=== PATIENT | female | born 1985 | race Caucasian/White ===

== ENCOUNTER → 2017-05-06 | Outpatient (REF) | payer BC ==
[~2017-05-06] MED LIST: ACET50TA PO; ASCO25TA PO; FERR325T3 PO; IBUP-1114 PO; PRENTAB9 PO; TUMS500C PO
[2017-05-06 18:53] LABS: ALBUMIN/GLOBULIN RATIO 1.18 (1.00-1.93); ALKALINE PHOSPHATASE 64 U/L (45-117); ALT/SGPT 27 U/L (12-78); ANION GAP 8 MEQ/L (8-16); AST/SGOT 13 U/L (15-37); BILIRUBIN,TOTAL 0.6 MG/DL (0.2-1.0); BLOOD UREA NITROGEN 11 MG/DL (7-18); CALCIUM LEVEL 8.9 MG/DL (8.5-10.1); CARBON DIOXIDE LEVEL 25 MEQ/L (21-32); CHLORIDE LEVEL 108 MEQ/L (98-107); CHOLESTEROL LEVEL 196 MG/DL (<200); CREATININE FOR GFR 0.73 MG/DL (0.55-1.02); GLOMERULAR FILTRATION RATE > 60.0 (>60); GLUCOSE, FASTING 80 MG/DL (70-105); POTASSIUM SERUM 4.2 MEQ/L (3.5-5.1); SODIUM LEVEL 141 MEQ/L (136-145); TOTAL PROTEIN 7.4 GM/DL (6.4-8.2); TRIGLYCERIDES LEVEL 58 MG/DL (<150)
== END ==
LOC: M SFHCCLAY 08:59
PROVIDERS: ATTEND Family Medicine
DX: Z00.00 Encounter for general adult medical examination without abnormal findings (principal)

== ENCOUNTER → 2018-01-27 | Outpatient (REF) | payer BC | LOC: M SFHCCLAY 01-28 11:26 | DX: J02.9 Acute pharyngitis, unspecified (principal) | CPT/HCPCS: 87070 ==

== ENCOUNTER → 2019-05-03 | Outpatient (REF) | payer BC ==
[~2019-05-03] MED LIST changes: -ACET50TA PO; -ASCO25TA PO; +MAPA500T2 PO; +VITA1TAB23 PO
== END ==
LOC: M SFHCCLAY 16:02
PROVIDERS: ATTEND Nurse Practitioner Family
DX: Z53.9 Procedure and treatment not carried out, unspecified reason (principal)

== ENCOUNTER → 2019-05-25 | Outpatient (CLI) | payer BC | LOC: M SMT 14:13 | PROVIDERS: ATTEND Advanced Practice Midwife | DX: O03.9 Complete or unspecified spontaneous abortion without complication (principal) ==

== ENCOUNTER → 2019-06-08 | Outpatient (REF) | payer BC | LOC: M LABDRAW1 16:02 | PROVIDERS: ATTEND Advanced Practice Midwife | DX: O03.4 Incomplete spontaneous abortion without complication (principal) ==

== ENCOUNTER → 2019-09-30 | Outpatient (REF) | payer BC ==
[2019-10-01 11:36] LABS: BASO % 0.4 % (0.0-1.0); EOS # 0.1 10^3/uL (0.0-0.5); EOS % 2.5 % (0.0-3.0); HEMATOCRIT 38.7 % (36.0-47.0); HEMOGLOBIN 12.3 g/dl (12.0-15.5); LYMPH # 1.5 10^3/uL (1.5-5.0); LYMPH % 29.1 % (24.0-44.0); MEAN CORPUSCULAR HEMOGLOBIN 28.7 pg (27.0-33.0); MEAN CORPUSCULAR HGB CONC 31.8 g/dl (32.0-36.5); MEAN CORPUSCULAR VOLUME 90.2 fl (80.0-96.0); MONO # 0.5 10^3/uL (0.0-0.8); MONO % 8.8 % (0.0-5.0); NEUTROPHILS # 3.1 10^3/uL (1.5-8.5); PLATELET COUNT, AUTOMATED 288 10^3/uL (150-450); RED BLOOD COUNT 4.29 10^6/uL (4.00-5.40); WHITE BLOOD COUNT 5.2 10^3/uL (4.0-10.0)
[2019-10-01 11:45] LABS: ALBUMIN 3.7 GM/DL (3.2-5.2); ALT/SGPT 33 U/L (12-78); BILIRUBIN,TOTAL 0.3 MG/DL (0.2-1.0); BLOOD UREA NITROGEN 16 MG/DL (7-18); CALCIUM LEVEL 8.8 MG/DL (8.5-10.1); CARBON DIOXIDE LEVEL 29 MEQ/L (21-32); CHLORIDE LEVEL 106 MEQ/L (98-107); CREATININE FOR GFR 0.53 MG/DL (0.55-1.30); GLOMERULAR FILTRATION RATE > 60.0 (>60); GLUCOSE, FASTING 88 MG/DL (70-100); POTASSIUM SERUM 3.6 MEQ/L (3.5-5.1); SODIUM LEVEL 140 MEQ/L (136-145); TOTAL PROTEIN 7.2 GM/DL (6.4-8.2)
== END ==
LOC: M SFHCCLAY 14:02
PROVIDERS: ATTEND Nurse Practitioner Family
DX: R59.0 Localized enlarged lymph nodes (principal)

== ENCOUNTER → 2021-03-14 | Outpatient (REF) | payer BC ==
[~2021-03-14] MED LIST changes: +ASCO250T20 PO; -VITA1TAB23 PO
== END ==
LOC: M SFHCCLAY 10:51
PROVIDERS: ATTEND Nurse Practitioner Family
DX: Z36.9 Encounter for antenatal screening, unspecified (principal); Z3A.01 Less than 8 weeks gestation of pregnancy

== ENCOUNTER → 2021-04-16 | Outpatient (CLI) | payer BC ==
[2021-04-16 13:21] LABS: HEMATOCRIT 35.3 % (36.0-47.0); MEAN CORPUSCULAR HEMOGLOBIN 26.1 pg (27.0-33.0); MEAN CORPUSCULAR HGB CONC 31.2 g/dl (32.0-36.5); MEAN CORPUSCULAR VOLUME 83.8 fl (80.0-96.0); PLATELET COUNT, AUTOMATED 352 10^3/uL (150-450); RED BLOOD COUNT 4.21 10^6/uL (4.00-5.40); WHITE BLOOD COUNT 7.7 10^3/uL (4.0-10.0)
[2021-04-16 14:33] LABS: HIV 1&2 SCREEN CENTAUR NEGATIVE (NEGATIVE)
[2021-04-16 14:56] LABS: GC DNA AMPLIFICATION NEGATIVE (NEGATIVE)
== END ==
LOC: M PLALAB 10:23
PROVIDERS: ATTEND Specialist
DX: Z34.81 Encounter for supervision of other normal pregnancy, first trimester (principal); Z3A.00 Weeks of gestation of pregnancy not specified

== ENCOUNTER → 2021-05-14 | Outpatient (REF) | payer BC | LOC: M SFHCWAGY 13:13 | PROVIDERS: ATTEND Advanced Practice Midwife | DX: Z34.92 Encounter for supervision of normal pregnancy, unspecified, second trimester (principal); Z3A.00 Weeks of gestation of pregnancy not specified ==

== ENCOUNTER → 2021-06-21 | Outpatient (CLI) | payer BC ==
--- NOTE | 2021-06-22 02:49 | REP ---
INDICATION: ANATOMY COMPARISON: None. TECHNIQUE: Transabdominal obstetrical ultrasound with color Doppler evaluation. FINDINGS: Examination demonstrates a single live intrauterine in variable presentation. motion is identified by technologist. Placenta is noted posterior and grade 0 without evidence for placenta previa or abruption. Amniotic fluid volume is normal. Cervix measures 3.5 cm in length and appears closed.. Selected gestational age: 20 weeks 1 day with ALEKSANDR 11/07/2021. Gestational age by current measurements 19 weeks 6 days with ALEKSANDR 11/09/2021. FHR equals 142 beats per minute. BPD: 4.7 cm; 20 weeks 1 day; 50% HC: 17.0 cm; 19 weeks 4 days; 34% AC: 14.7 cm; 20 weeks 0 days; 47% FL: 3.1 cm; 19 weeks 3 days; 33% HL: 3.0 cm; 19 weeks 6 days; 45% HC/AC: 1.15 Estimated weight 311 grams (26thpercentile). Anatomical assessment demonstrates normal structures including cranium, choroid plexus, cavum, cerebellum/posterior fossa, facial features, lungs, four-chamber heart/ventricular outflow tracts, diaphragm, stomach, cord insertion/three-vessel cord, kidneys/bladder, spine, and extremities. IMPRESSION: Single live intrauterine in variable presentation demonstrating appropriate estimated weight. Anatomical assessment is complete and normal. <Electronically signed by David Hamilton > 06/22/21 [id number]
== END ==
LOC: M WHC 14:03
PROVIDERS: ATTEND Advanced Practice Midwife
DX: Z34.92 Encounter for supervision of normal pregnancy, unspecified, second trimester (principal); Z3A.20 20 weeks gestation of pregnancy

== ENCOUNTER → 2021-08-27 | Outpatient (CLI) | payer BC ==
[2021-08-27 15:11] LABS: HEMATOCRIT 33.2 % (36.0-47.0); HEMOGLOBIN 10.7 g/dl (12.0-15.5); MEAN CORPUSCULAR HEMOGLOBIN 28.8 pg (27.0-33.0); MEAN CORPUSCULAR HGB CONC 32.2 g/dl (32.0-36.5); MEAN CORPUSCULAR VOLUME 89.2 fl (80.0-96.0); PLATELET COUNT, AUTOMATED 266 10^3/uL (150-450); RED BLOOD COUNT 3.72 10^6/uL (4.00-5.40); WHITE BLOOD COUNT 9.1 10^3/uL (4.0-10.0)
== END ==
LOC: M PLALAB 12:48
PROVIDERS: ATTEND Obstetrics & Gynecology
DX: O99.013 Anemia complicating pregnancy, third trimester (principal); Z3A.00 Weeks of gestation of pregnancy not specified

== ENCOUNTER → 2021-10-16 | Outpatient (REF) | payer BC | LOC: M SFHCWAGY 16:53 | PROVIDERS: ATTEND Obstetrics & Gynecology | DX: Z34.93 Encounter for supervision of normal pregnancy, unspecified, third trimester (principal) ==

== ENCOUNTER 2021-11-14 19:18 | Inpatient (IN) | payer BC ==
[~2021-11-14] VITALS: Ht 152.4 cm; Wt 73.8 kg
[2021-11-14] VITALS (9 sets, daily range): BP systolic 131–174; BP diastolic 66–98
[2021-11-14] MEDS ORDERED: TUMS500C PO (19:55)
[2021-11-14] MEDS ORDERED: CARBOPROST TROMETHAMINE 250 MCG/ML AMP IM PRN (20:25)
[2021-11-14] MEDS ORDERED: LR 1,000 ML IV SCH (20:25)
[2021-11-14] MEDS ORDERED: OXYTOCIN INJ 10 UNITS/ML VIAL (J2590) IM PRN (20:25)
[2021-11-14] MEDS ORDERED: OXYTOCIN DRIP 30 UNITS in IV 1 EA IV SCH (20:25)
[2021-11-14] MEDS ORDERED: OXYTOCIN DRIP 30 UNITS in IV 1 EA IV PRN ×4 (20:25)
[2021-11-14] MEDS ORDERED: LIDOCAINE 1% MDV 20ML VIAL INFIL PRN (20:25)
[2021-11-14] MEDS ORDERED: METHYLERGONOVINE MALEATE 0.2 MG/ML VIAL (J2210) IM PRN (20:25)
[2021-11-14] MEDS ORDERED: TRANEXAMIC ACID INJection 1,000 MG in NS 100 ML IV PRN (20:25)
[2021-11-14] MEDS ORDERED: LACTATED RINGER'S 1000 ML IV ONE (20:40)
[2021-11-14 20:43] LABS: BASO % 0.3 % (0.0-1.0); EOS # 0.1 10^3/uL (0.0-0.5); EOS % 0.8 % (0.0-3.0); HEMATOCRIT 37.4 % (36.0-47.0); HEMOGLOBIN 12.8 g/dl (12.0-15.5); LYMPH # 1.1 10^3/uL (1.5-5.0); LYMPH % 15.2 % (24.0-44.0); MEAN CORPUSCULAR HEMOGLOBIN 30.1 pg (27.0-33.0); MEAN CORPUSCULAR HGB CONC 34.2 g/dl (32.0-36.5); MONO # 0.6 10^3/uL (0.0-0.8); MONO % 8.4 % (2.0-8.0); NEUTROPHILS # 5.4 10^3/uL (1.5-8.5); NEUTROPHILS % 74.2 % (36.0-66.0); PLATELET COUNT, AUTOMATED 190 10^3/uL (150-450); RED BLOOD COUNT 4.25 10^6/uL (4.00-5.40); WHITE BLOOD COUNT 7.3 10^3/uL (4.0-10.0)
[2021-11-14] MEDS ORDERED: BUTORPHANOL 2 MG/ML INJ (J0595) IV ONE (22:20)
[2021-11-14] MEDS ORDERED: PROMETHAZINE 25MG/ML 1ML VIAL IV ONE (22:20)
[2021-11-15] VITALS (24 sets, daily range): BP systolic 120–186; BP diastolic 60–133
[2021-11-15] MEDS ORDERED: FENTANYL 2MCG/ML ROPIVACAINE 0.2% IN 0.9% NACL 100ML IVBAG As Ordered ONE (02:33)
[2021-11-15] MEDS ORDERED: diphenhydrAMINE 50MG/ML VIAL (J1200) IV PRN (02:40)
[2021-11-15] MEDS ORDERED: ONDANSETRON 4MG/2ML VIAL IV PRN (02:40)
[2021-11-15] MEDS ORDERED: EPIDURAL/PCA KEYS XX PRN (02:40)
[2021-11-15] MEDS ORDERED: LACTATED RINGER'S 1000 ML IV PRN (02:40)
[2021-11-15] MEDS ORDERED: EPIDURAL COMMENT XX SCH (02:40)
[2021-11-15] MEDS ORDERED: FENTANYL/ROPIVACAINE/NACL BAG 100 ML EPIDURAL SCH (02:40)
[2021-11-15] MEDS ORDERED: NALOXONE INJ 0.4MG/1ML VIAL (J2310 PER 1MG) IV PRN (02:40)
[2021-11-15] MEDS ORDERED: REFRIGERATOR IV KEYS XX PRN (02:40)
[2021-11-15] MEDS ORDERED: ePHEDrine SULFATE 25 MG/5 ML(5MG/ML) SYRINGE IV PRN (02:40)
[2021-11-15 04:52] LABS: CORD GAS ABE V -12.5; CORD GAS HCO3 V 16.5 MEQ/L; CORD GAS O2 SAT V 39.6 %; CORD GAS PCO2 V 49.1 mmHg; CORD GAS PH V 7.145 UNITS; CORD GAS PO2 V 20.2 mmHg; CORD GAS SBC V 13.8 MEQ/L
[2021-11-15 04:55] LABS: CORD GAS HCO3 A 20.4 MEQ/L; CORD GAS O2 SAT A 15.1 %; CORD GAS PCO2 A 70.1 mmHg; CORD GAS PH A 7.082 UNITS; CORD GAS PO2 A 12.2 mmHg; CORD GAS SBC A 14.3 MEQ/L; CORD GAS TCO2 A 22.6 MEQ/L
[2021-11-15] MEDS ORDERED: DIBUCAINE 1% OINTMENT 30GM TOP PRN (05:15)
[2021-11-15] MEDS ORDERED: ANUSOL HC CREAM 30GM TOP PRN (05:15)
[2021-11-15] MEDS ORDERED: MEASLES,MUMPS,RUBELLA VACCINE INJ (MMR-II) (90707) SC SCH (05:15)
[2021-11-15] MEDS ORDERED: RHOGAM 300 MCG (1500 IU) INJ (J2790) IM SCH (05:15)
[2021-11-15] MEDS ORDERED: ACETAMINOPHEN TAB 650MG DOSE (2X325MG) PO PRN (05:15)
[2021-11-15] MEDS ORDERED: IBUPROFEN 600MG TAB PO PRN (05:15)
[2021-11-15] MEDS: PRENATAL VITAMINS CHEWABLE TABLET PO SCH (10:43)
[2021-11-15] MEDS: ACETAMINOPHEN 500 MG TAB PO PRN ×2 (10:44→17:09)
[2021-11-15] MEDS: IBUPROFEN 800 MG TAB PO PRN ×2 (12:42→22:16)
[2021-11-15] MEDS: DOCUSATE SODIUM 100MG CAPSULE PO PRN (22:15)
[2021-11-16] MEDS: IBUPROFEN 800 MG TAB PO PRN ×3 (05:29→22:10)
[2021-11-16] MEDS: PRENATAL VITAMINS CHEWABLE TABLET PO SCH (07:49)
[2021-11-16] MEDS: ACETAMINOPHEN 500 MG TAB PO PRN ×2 (07:50→16:19)
[2021-11-16] MEDS: DOCUSATE SODIUM 100MG CAPSULE PO PRN (16:19)
[2021-11-16 18:00] VITALS: BP 162/88
[2021-11-17] MEDS: ACETAMINOPHEN 500 MG TAB PO PRN ×2 (00:57→08:27)
[2021-11-17 05:56] VITALS: BP 138/77
[2021-11-17] MEDS: IBUPROFEN 800 MG TAB PO PRN ×2 (06:28→14:18)
[2021-11-17] MEDS: PRENATAL VITAMINS CHEWABLE TABLET PO SCH (08:28)
== END 2021-11-17 12:30 | disposition home or self-care (01) | DRG 560 ==
LOC: M LDI 19:18 → M OBS 11-15 07:16
PROVIDERS: ADMIT Advanced Practice Midwife; ATTEND Advanced Practice Midwife
PROC: 3E033VJ Introduction of Other Hormone into Peripheral Vein, Percutaneous Approach (ICD-10-PCS; 2021-11-14)
PROC: 10E0XZZ Delivery of Products of Conception, External Approach (ICD-10-PCS; principal; 2021-11-15)
PROC: 0KQM0ZZ Repair Perineum Muscle, Open Approach (ICD-10-PCS; 2021-11-15)
DX: O48.0 Post-term pregnancy (principal); O77.0 Labor and delivery complicated by meconium in amniotic fluid; Z37.0 Single live birth; Z3A.41 41 weeks gestation of pregnancy; Z88.0 Allergy status to penicillin; Z88.2 Allergy status to sulfonamides; Z88.8 Allergy status to other drugs, medicaments and biological substances; O70.1 Second degree perineal laceration during delivery

== ENCOUNTER → 2022-08-19 | Outpatient (CLI) | payer OTHER ==
[2022-08-19 14:34] LABS: HEMATOCRIT 40.4 % (36.0-47.0); HEMOGLOBIN 12.7 g/dl (12.0-15.5); MEAN CORPUSCULAR HEMOGLOBIN 29.5 pg (27.0-33.0); MEAN CORPUSCULAR HGB CONC 31.4 g/dl (32.0-36.5); PLATELET COUNT, AUTOMATED 346 10^3/uL (150-450); WHITE BLOOD COUNT 9.1 10^3/uL (4.0-10.0)
== END ==
LOC: M PLALAB 11:38
PROVIDERS: ATTEND Advanced Practice Midwife
DX: N92.0 Excessive and frequent menstruation with regular cycle (principal)